=== PATIENT | male | born 1965 | race African-American/Black ===

== ENCOUNTER 2016-08-31 12:42 | Emergency (ER) | payer OTHER ==
[~2016-08-31] VITALS: Ht 188 cm; Wt 113.4 kg
[~2016-08-31 12:42] MED LIST: ACETAMINOPHEN-1 EAC1 ORAL; ALBUTEROL2.5 MG/3 M INH; BACITRACIN15 GM TOPIC; BACTRIM-DS1 EA ORAL; IBUPROFEN600 MG ORAL; KEFLEX500 MG ORAL; NORCO 5-325 TA1 EACH ORAL; NORCO 5-325 TA1 EACH PO
--- NOTE | 2016-08-31 13:24 | Emergency Room Report ---
History of Present Illness General Chief Complaint: Pain Source: Patient Present Illness HPI The patient is a 51-year-old male presenting with left hand third digit pain which began 3 days prior and is getting worse. Pain is described as a 9/10 throbbing dull ache it is worse with touch.Pt does admit to biting his nails. Pt denies bleeding or discharge from the area, N, V, F, chills, numbness/ tingling, CP, SOB Allergies: Coded Allergies: No Known Allergies (Verified Allergy, Unknown, 07/18/10) Patient History Past Medical History: see triage record Pertinent Family History: none Reviewed Nursing Documentation: PMH: Agreed, PSxH: Agreed Nursing Documentation-PMH Past Medical History: No History, Except For Hx Asthma: Yes Review of Systems All Other Systems: negative except mentioned in HPI Physical Exam Vital Signs Date Time Temp Pulse Resp B/P Pulse Ox O2 Delivery O2 Flow Rate FiO2 08/31/16 13:16 97.9 82 14 107/77 99 Room Air Sp02 EP Interpretation: reviewed, normal General Appearance: no apparent distress, alert, GCS 15, non-toxic Head: normocephalic, atraumatic Eyes: bilateral eye PERRL, bilateral eye normal inspection Musculoskeletal: back normal, gait/station normal, normal range of motion Neurologic: alert, oriented x3, responsive, motor strength/tone normal, sensory intact, speech normal Psychiatric: judgement/insight normal, memory normal, mood/affect normal, no suicidal/homicidal ideation Skin: well hydrated, other - Right hand third digit has edema and fluctuance to the nail fold. No discharge. No bleeding. Lymphatic: no adenopathy Procedures Incision and Drainage Incision and Drainage : Consent: Verbal Site: R 3rd digit Blade Size: 11 I & D Procedure: betadine prep, sterile drapes applied, sterile dressing applied Wound Location: upper extremity Wound's Depth, Shape: superficial Wound Length (cm): 1 Wound Explored: contaminated Irrigated w/ Saline (ccs): 100 Anesthesia: 1% Lidocaine Volume Anesthetic (ccs): 4 Splint Applied?: No Patient Tolerated: Well Complications: None Medical Decision Making PA Attestation Dr. Caballero is my supervising physician. Patient management was discussed with my supervising physician Diagnostic Impression: Primary Impression: Paronychia of finger ER Course The patient is a 51-year-old male presenting with left hand third digit pain which began 3 days prior and is getting worse. Differential diagnosis considered: Felon, paronychia, sprain Physical exam: Vitals within normal limits. No apparent distress. Right hand: Third digit has edema with fluctuance to the lateral nail fold. Tender to palpation. Otherwise exam unremarkable Betadine prep was used to clean the skin and surrounding area. One percent lidocaine without epinephrine was used for digital block. A #11 blade was used to make an incision at the base of the nail. Once the incision was made, purulent material was expressed with blood. The wound was then cleaned and sterile dressing applied. The patient will be discharged home with a prescription for antibiotics due to exposure to oral arnaud. ER precautions are given Last Vital Signs Date Time Temp Pulse Resp B/P Pulse Ox O2 Delivery O2 Flow Rate FiO2 08/31/16 13:16 97.9 82 14 107/77 99 Room Air Status: improved Disposition: HOME, SELF-CARE Condition: Improved Scripts Cephalexin* (KEFLEX*) 500 Mg Capsule 500 MG ORAL EVERY 12 HOURS, #14 CAP 0 Refills Prov: GUADALUPE GIBSON 08/31/16 GUADALUPE GIBSON Aug 31, 2016 13:24
[2016-08-31] MEDS ORDERED: Bacitracin Oint UD TOPIC ONE (13:30)
[2016-08-31] MEDS ORDERED: Lidocaine 1% MPF 10mg/ml 5ml INJ ONE (13:30)
[2016-08-31] MEDS ORDERED: CEPHALEXIN500 MG ORAL (14:09)
[2016-08-31 14:16] VITALS: BP 94/68
== END 2016-08-31 15:00 | disposition home or self-care (01) ==
LOC: EMR 15:00
DX: L03.012 Cellulitis of left finger (principal); J45.909 Unspecified asthma, uncomplicated
CPT/HCPCS: 10060

== ENCOUNTER 2016-10-01 17:21 | Emergency (ER) | payer OTHER ==
[~2016-10-01] VITALS: Ht 188 cm; Wt 117.0 kg
[~2016-10-01 17:21] MED LIST changes: +CEPHALEXIN500 MG ORAL
[2016-10-01 17:38] VITALS: BP 134/85
[2016-10-01] MEDS ORDERED: Norco 5mg/325mg tab PO ONE (18:00)
[2016-10-01] MEDS ORDERED: NORCO 5-325 TA1 EACH ORAL (19:01)
[2016-10-01] MEDS ORDERED: IBUPROFEN600 MG ORAL (19:01)
[2016-10-01 19:06] VITALS: BP 139/82
[2016-10-01 19:07] VITALS: BP 139/82
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
--- NOTE | 2016-10-05 10:51 | Diagnostic Imaging Report ---
Indication: PAIN Technique: 3 views of the shoulder Comparison: none Findings: No acute fractures. No dislocations. Joint spaces are preserved. Subchondral cysts are seen within the glenoid Impression:Glenoid subchondral cysts, consistent with chronic degenerative changes No acute process
== END 2016-10-01 19:08 | disposition home or self-care (01) ==
LOC: EMR 17:49
DX: S46.911A Strain of unspecified muscle, fascia and tendon at shoulder and upper arm level, right arm, initial encounter (principal); Y04.0XXA Assault by unarmed brawl or fight, initial encounter; Y92.9 Unspecified place or not applicable; E11.9 Type 2 diabetes mellitus without complications; J45.909 Unspecified asthma, uncomplicated
CPT/HCPCS: 29240; 99284

== ENCOUNTER 2016-12-15 12:06 | Emergency (ER) | payer OTHER ==
[~2016-12-15] VITALS: Ht 188 cm; Wt 115.7 kg
[2016-12-15 12:21] VITALS: BP 134/94
--- NOTE | 2016-12-15 12:50 | Emergency Room Report ---
History of Present Illness General Chief Complaint: Skin Rash/Abscess Present Illness HPI 51 YO Male Pt. presents to the ED c/o Itching, swelling, and erythema of multiple insect bites to the forearms bilaterally, the back of the neck and two on the abdomen. Denies fevers, chills, nausea, vomiting abdominal pain, recent travel or ill contacts. Patient denies open wounds, crusting, discharge or pain. Denies CP, Palpitations, LOC, AMS, dizziness, Changes in Vision, Sensation , paresthesias, or a sudden severe headache. Allergies: Coded Allergies: No Known Allergies (Verified Allergy, Unknown, 07/18/10) Patient History Past Medical History: see triage record Past Surgical History: none Pertinent Family History: none Immunizations: UTD Reviewed Nursing Documentation: PMH: Agreed, PSxH: Agreed Nursing Documentation-PMH Hx Asthma: Yes Hx Diabetes: Yes Review of Systems All Other Systems: negative except mentioned in HPI Physical Exam Vital Signs Date Time Temp Pulse Resp B/P Pulse Ox O2 Delivery O2 Flow Rate FiO2 12/15/16 12:21 97.9 66 20 134/94 98 Room Air Sp02 EP Interpretation: reviewed, normal General Appearance: no apparent distress, alert, GCS 15, non-toxic Head: normocephalic, atraumatic Eyes: bilateral eye PERRL, bilateral eye normal inspection ENT: hearing grossly normal, normal pharynx, no angioedema, normal voice Neck: full range of motion, supple/symm/no masses Respiratory: chest non-tender, lungs clear, normal breath sounds, speaking full sentences Cardiovascular #1: regular rate, rhythm, no edema Genitourinary: normal inspection Musculoskeletal: back normal, gait/station normal, normal range of motion, non- tender Neurologic: alert, oriented x3, responsive, motor strength/tone normal, sensory intact, speech normal Psychiatric: judgement/insight normal, memory normal, mood/affect normal Skin: normal color, warm/dry, well hydrated, other - multiple insect bites, small discrete local areas of swelling and blanching erythema. no crusting or evidence of secondary infection at this time. Lymphatic: no adenopathy Medical Decision Making PA Attestation Dr. Brown is my supervising Physician whom patient management has been discussed with. Diagnostic Impression: Primary Impression: Insect bite Qualified Codes: W57.XXXA - Bitten or stung by nonvenomous insect and other nonvenomous arthropods, initial encounter ER Course Pt. presents to the ED c/o Itching, swelling, and erythema of multiple insect bites to the forearms bilaterally, the back of the neck and two on the abdomen. Ddx considered but are not limited to cellulitis, scabies, insect bites, tic bites, spider bites, contact dermatitis, Drug reaction, allergic reaction, fungal infection, lice. Vital signs: are WNL, pt. is afebrile H&PE are most consistent with insect bites, non-infected, no systemic allergic reaction at this time. ORDERS: none required at this time, the diagnosis is clinical ED INTERVENTIONS: -25mg Benadryl PO. DISCHARGE: At this time pt. is stable for d/c to home. Will provide printed patient care instructions, and any necessary prescriptions. Care plan and follow up instructions have been discussed with the patient prior to discharge. Last Vital Signs Date Time Temp Pulse Resp B/P Pulse Ox O2 Delivery O2 Flow Rate FiO2 12/15/16 12:21 97.9 66 20 134/94 98 Room Air Disposition: HOME, SELF-CARE Condition: Stable Scripts Hydrocortisone 2% Cream (ANTI-ITCH 2% CREAM) Y Cr 1 APPLIC TP TID, #56 GM Prov: Lillian Ellis 12/15/16 Diphenhydramine Hcl* (BENADRYL*) 25 Mg Capsule 25 MG ORAL Q6H Y for Itching, #30 CAP Prov: Lillian Ellis 12/15/16 Patient Instructions: Insect Bite Additional Instructions: Take medications as directed. Follow up with PCP in 3-5 days Return sooner to ED if new symptoms occur, or current symptoms become worse. Do not drink alcohol, drive, or operate heavy machinery while taking benadryl as this may cause drowsiness. - Please note that this Emergency Department Report was dictated using [employer] technology software, occasionally this can lead to erroneous entry secondary to interpretation by the dictation equipment. Lillian Ellis December 15, 2016 12:50
[2016-12-15] MEDS ORDERED: BENADRYL25 MG ORAL (12:52)
[2016-12-15] MEDS ORDERED: ANTI-ITCH56 GM TP (12:52)
[2016-12-15 13:07] VITALS: BP 134/94
== END 2016-12-15 13:07 | disposition home or self-care (01) ==
LOC: EMR 12:53
DX: S50.862A Insect bite (nonvenomous) of left forearm, initial encounter (principal); E11.9 Type 2 diabetes mellitus without complications; S50.861A Insect bite (nonvenomous) of right forearm, initial encounter; S10.96XA Insect bite of unspecified part of neck, initial encounter; S30.861A Insect bite (nonvenomous) of abdominal wall, initial encounter; W57.XXXA Bitten or stung by nonvenomous insect and other nonvenomous arthropods, initial encounter; Y93.9 Activity, unspecified; Y92.9 Unspecified place or not applicable; J45.909 Unspecified asthma, uncomplicated
CPT/HCPCS: 99284

== ENCOUNTER 2017-12-17 18:13 | Emergency (ER) | payer OTHER ==
[~2017-12-17] VITALS: Ht 188 cm; Wt 116.1 kg
[~2017-12-17 18:13] MED LIST changes: +ANTI-ITCH56 GM TP; +BENADRYL25 MG ORAL; +FLOMAX0.4 MG ORAL; +IBUPROFEN800 MG ORAL; +ROBAXIN-750750 MG PO
[2017-12-17 18:18] VITALS: BP 105/69
[2017-12-17] MEDS ORDERED: Ipratropium 0.02% Inh Soln 2.5ml UD HHN ONE (18:30)
[2017-12-17] MEDS ORDERED: Albuterol ud Inhalation HHN ONE (18:30)
[2017-12-17] MEDS ORDERED: ROBITUSSIN NIG237 ML PO (19:01)
[2017-12-17] MEDS ORDERED: PREDNISONE20 MG ORAL (19:01)
[2017-12-17] MEDS ORDERED: ALBUTEROL SULF8.5 GM INH (19:01)
[2017-12-17 19:09] VITALS: BP 111/74
--- NOTE | 2017-12-19 07:47 | Emergency Room Report ---
History of Present Illness General Chief Complaint: Asthma Source: Patient Present Illness HPI Patient presents with complaints of asthma exacerbation Was not able to improve significantly with home intervention Patient has a mild cough as well Denies any fevers or chills denies any chest pain Denies any back or flank pain Denies any recent travel or pleurisy Allergies: Coded Allergies: No Known Allergies (Verified , 07/18/10) Patient History Past Medical History: see triage record Pertinent Family History: none Reviewed Nursing Documentation: PMH: Agreed; PSxH: Agreed Nursing Documentation-PMH Past Medical History: No History, Except For Hx Hypertension: Yes Hx Asthma: Yes Hx Diabetes: Yes Review of Systems All Other Systems: negative except mentioned in HPI Physical Exam Vital Signs Date Time Temp Pulse Resp B/P (MAP) Pulse Ox O2 Delivery O2 Flow Rate FiO2 12/17/17 18:18 71 16 Room Air 12/17/17 18:18 98.0 105/69 94 98.0 12/17/17 18:40 21 Sp02 EP Interpretation: reviewed, normal General Appearance: no apparent distress Head: normocephalic, atraumatic Eyes: bilateral eye PERRL, bilateral eye EOMI ENT: normal pharynx, no angioedema Neck: supple Respiratory: no retraction, no accessory muscle use, wheezing - Bilaterally Cardiovascular #1: regular rate, rhythm, no edema Gastrointestinal: soft, no mass Musculoskeletal: normal inspection Neurologic: alert, oriented x3, responsive, 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 Skin: normal color, no rash Lymphatic: no adenopathy Medical Decision Making Diagnostic Impression: Primary Impression: Asthma Additional Impression: Asthma attack ER Course Given the patient's initial presentation Examination appears to have an asthma exacerbation Patient is initiated on breathing treatments upon arrival Steroids are provided as well patient has done significantly better at this time will have initial conservative outpatient trial Last Vital Signs Date Time Temp Pulse Resp B/P (MAP) Pulse Ox O2 Delivery O2 Flow Rate FiO2 12/17/17 19:09 98.1 70 15 111/74 97 Room Air 98.0 12/17/17 18:53 21 Status: improved Disposition: HOME, SELF-CARE Condition: Improved Scripts Dextromethorphan Hb/Doxylamine (ROBITUSSIN NIGHTTIME COUGH DM) 237 Ml Liquid 10 ML PO QHS for 5 Days, ML Prov: Monico Abad DO 5/4/18 Prednisone* (PREDNISONE*) 20 Mg Tablet 20 MG ORAL DAILY, #8 TAB Prov: Monico Abad DO 12/17/17 Albuterol Sulfate* (ALBUTEROL SULFATE MDI*) 8.5 Gm Hfa.aer.ad 2 PUFF INH Q6H, #1 EA 0 Refills Prov: Monico Abad DO 12/17/17 Referrals: [facility]ERR[facility] (PCP) Patient Instructions: Asthma, Adult Additional Instructions: Patient is provided with the discharge instructions notified to follow up with primary doctor in the next 2-3 days otherwise return to the er with any worsening symptoms. Please note that this report is being documented using [employer] technology. This can lead to erroneous entry secondary to incorrect interpretation by the dictating instrument. Monico Abad DO December 19, 2017 07:47
== END 2017-12-17 19:10 | disposition home or self-care (01) ==
LOC: EMR 18:50
DX: J45.901 Unspecified asthma with (acute) exacerbation (principal); I10 Essential (primary) hypertension; E11.9 Type 2 diabetes mellitus without complications
CPT/HCPCS: 94640; 94664; 99284; J7512